=== PATIENT | female | born 1950 | race Caucasian/White ===

== ENCOUNTER 2017-09-02 18:04 | Inpatient (IN) | payer OTHER ==
[2017-09-02 18:05] VITALS: BMI 27.1
--- NOTE | 2017-09-02 19:12 | ED PDOC ---
HPI: Abdomen Time Seen by Provider: 09/02/17 19:04 Chief Complaint (Nursing): Abdominal Pain Chief Complaint (Provider): abd pain History Per: Patient Additional Complaint(s): 67-year-old female with history of diabetes and high blood pressure presents with diffuse lower abdominal pain 2 weeks associated with nausea and straining during bowel movements. Patient denies dysuria, vaginal bleeding or vaginal discharge. She has had decreased appetite and vomited once last week but has not vomited since then. Patient's last bowel movement was yesterday and she states she was straining when she went. She denies any diarrhea, no fever or chills. PMD: [place] Past Medical History Reviewed: Historical Data, Nursing Documentation, Vital Signs Vital Signs: Last Vital Signs Temp 99.0 F 09/02/17 18:17 Pulse 101 H 09/02/17 18:17 Resp 16 09/02/17 18:17 BP 165/80 H 09/02/17 18:17 Pulse Ox 97 09/02/17 19:14 - Medical History PMH: Diabetes, GERD, HTN, Hyperlipidemia - Surgical History Other surgeries: tubal ligation - Family History Family History: States: No Known Family Hx - Living Arrangements Living Arrangements: With Family - Social History Current smoker - smoking cessation education provided: No Alcohol: None Drugs: Denies - Home Medications Home Medications: Ambulatory Orders Medication Instructions Recorded Dicyclomine [Dicyclomine HCl] 10 mg PO 06/11/14 Fenofibrate,Micronized 134 mg PO 06/11/14 [Fenofibrate] Glipizide 10 mg PO DAILY 06/11/14 Pantoprazole Sodium [Protonix] 40 mg PO DAILY 06/11/14 Acetaminophen with Codeine 1 tab PO Q6 PRN #20 tab 11/18/14 [Tylenol with Codeine No. 3 300 mg-30 mg] Ciprofloxacin/Ciprofloxa HCl 500 mg PO BID #14 tab 11/18/14 [Ciprofloxacin] Cyclobenzaprine HCl [Flexeril] 10 mg PO Q8 #20 tab 11/18/14 - Allergies Allergies/Adverse Reactions: Allergies Allergy/AdvReac Type Severity Reaction Status Date / Time No Known Allergies Allergy Verified 09/02/17 18:17 Review of Systems ROS Statement: Except As Marked, All Systems Reviewed And Found Negative Constitutional: Negative for: Fever, Chills Cardiovascular: Negative for: Chest Pain Respiratory: Negative for: Cough Gastrointestinal: Positive for: Nausea, Vomiting (x 1 last week, none since), Abdominal Pain. Negative for: Diarrhea, Constipation, Melena, Hematochezia, Hematemesis, Rectal Pain Genitourinary Female: Negative for: Dysuria, Frequency, Incontinence, Hematuria , Vaginal Discharge, Vaginal Bleeding Physical Exam - Reviewed Nursing Documentation Reviewed: Yes Vital Signs Reviewed: Yes - Physical Exam Appears: Positive for: Well, Non-toxic, No Acute Distress Skin: Positive for: Normal Color. Negative for: Rash Eye Exam: Positive for: Normal appearance Cardiovascular/Chest: Positive for: Regular Rate, Rhythm Respiratory: Positive for: Normal Breath Sounds Gastrointestinal/Abdominal: Positive for: Tenderness (LLQ, RLQ), Distended. Negative for: Guarding, Rebound Back: Negative for: L CVA Tenderness, R CVA Tenderness Extremity: Positive for: Normal ROM Neurologic/Psych: Positive for: Alert, Oriented - ECG O2 Sat by Pulse Oximetry: 97 Pulse Ox Interpretation: Normal Medical Decision Making Medical Decision Makin67 y/o with abd pain Plan: Urine dip CBC CMP Lipase IVF IV zofran IV toradol CT abd and pelvis with IV contrast Disposition - Clinical Impression Clinical Impression: Abdominal pain - Patient ED Disposition Is Patient to be Admitted: Transfer of Care - Disposition Disposition: Transfer of Care Disposition Time: 20:00 Condition: FAIR Forms: [employer] (Amharic) Patient Signed Over To: Caren Pedro Handoff Comments: Signed out pending diagnostic testing results and final disposition
[2017-09-02] MEDS ORDERED: Sodium Chloride 0.9% 1,000 ML IV STA (19:31)
[2017-09-02] MEDS ORDERED: Iohexol 300 100 ML IJ ONE (20:10)
[2017-09-02] MEDS ORDERED: Sodium Chloride 0.9% 100 ML ONE (20:10)
[2017-09-02 20:15] LABS: BASO % 0.3 % (0.0-2.0); EOS # 0.2 K/uL (0.0-0.7); EOS % 1.6 % (0.0-4.0); HEMOGLOBIN 12.8 g/dL (12.0-16.0); LYMPH # 3.1 K/uL (1.0-4.3); MEAN CELL VOLUME 90.1 fl (81.0-99.0); MEAN CORPUSCULAR HEMOGLOBIN 31.2 pg (27.0-31.0); MEAN CORPUSCULAR HGB CONC 34.6 g/dL (33.0-37.0); MEAN PLATELET VOLUME 8.5 fl (7.2-11.7); MONO # 0.7 K/uL (0.0-0.8); NEUT # 6.4 K/uL (1.8-7.0); NEUT % 61.1 % (50.0-75.0); RBC 4.12 Mil/uL (3.80-5.20); RED CELL DISTRIBUTION WIDTH 13.2 % (11.5-14.5); WHITE BLOOD COUNT 10.5 K/uL (4.8-10.8)
[2017-09-02 20:21] LABS: ALB/GLOB RATIO 1.2 (1.0-2.1); ALBUMIN 4.1 g/dL (3.5-5.0); ALT/SGPT 32 U/L (9-52); AST/SGOT 26 U/L (14-36); BLOOD UREA NITROGEN 9 mg/dl (7-17); CALCIUM 9.3 mg/dL (8.4-10.2); GFR AFRICAN-AMERICAN > 60; GFR NON-AFRICAN AMERICAN > 60; LIPASE 53 U/L (23-300)
--- NOTE | 2017-09-02 23:41 | ED PDOC ---
- Laboratory Results Result Diagrams: 09/02/17 20:05 09/02/17 20:05 - ECG O2 Sat by Pulse Oximetry: 97 - Progress ED Course And Treament: ct abd/pelvis IMPRESSION: Finding suggestion of early or partial small bowel obstruction as described above. Probable transition point within the right lower abdomen. Associated small bowel feces suggests a more prolonged delayed gastric transit. Thank you for allowing us to participate in the care of your patient. Dictated and Authenticated by: En Nichols DO 09/02/2017 9:42 PM Eastern Time d/w Franco Case. Would like Dr. Duran for surgery consult; Would like dr. Alvarado for GI consult d/w residential support specialist. Call placed to Dr. Alvarado Disposition - Clinical Impression Clinical Impression: Abdominal pain - POA Present On Arrival: None - Disposition Disposition: Admitted as In-Patient Disposition Time: 23:57 Condition: FAIR Forms: [facility] [facility] (Rwandan)
[2017-09-03 00:03] LABS: SQUAMOUS EPITHIAL 1 /hpf (0-5); URINE BACTERIA OCC (<OCC); URINE BILIRUBIN NEGATIVE (NEGATIVE); URINE BLOOD NEGATIVE (NEGATIVE); URINE CLARITY CLEAR (Clear); URINE COLOR STRAW (YELLOW); URINE GLUCOSE (UA) NEG (Normal); URINE LEUKOCYTE ESTERASE TRACE Leu/uL (Negative); URINE PROTEIN NEGATIVE (NEGATIVE); URINE URIC ACID CRYSTALS RARE /hpf (<OCC); URINE UROBILINOGEN 0.2-1.0 mg/dL (0.2-1.0)
--- NOTE | 2017-09-03 00:55 | CP.PCM.CON ---
<Gumaro Saunders - Last Filed: 09/03/17 00:45> History of Present Illness - History of Present Illness History of Present Illness: General Surgery Consult CC: lower abdominal pain HPI: 67F presented to ED with diffuse lower abd pain for 2 weeks associated with nausea, bloating, and flatus. Pain got much worse on 09/02/17 so she came to ED. Pain is sharp and constant. no radiation. Report decreased appetite, 1 episode of emesis of food last week. Last BM was yesterday, small but normal, takes MOM at home, last dose 4 days ago. + Flatus, will have diarrhea with MOM. Denies fever, chills, headache, dizziness, SOB, chest pain, emesis, hematochezia , melena, dysuria, hematuria. PMH: DM, HTN, HLD, GERD, back pain PSH: Tubal ligation, R knee sx FH: Noncontributory Meds: See MAR All: NKDA Review of Systems - Review of Systems All systems: reviewed and no additional remarkable complaints except (as per HPI ) Past Patient History - Past Medical History & Family History Past Medical History?: Yes - Past Social History Alcohol: None Drugs: Denies - CARDIAC Hx Hypertension: Yes - PULMONARY Hx Respiratory Disorders: No - NEUROLOGICAL Hx Neurological Disorder: No - HEENT Hx HEENT Problems: No - RENAL Hx Chronic Kidney Disease: No - ENDOCRINE/METABOLIC Hx Endocrine Disorders: Yes Hx Diabetes Mellitus Type 2: Yes - HEMATOLOGICAL/ONCOLOGICAL Hx Blood Disorders: No - INTEGUMENTARY Hx Dermatological Problems: No - MUSCULOSKELETAL/RHEUMATOLOGICAL Hx Musculoskeletal Disorders: No - GASTROINTESTINAL Hx Gastrointestinal Disorders: No - GENITOURINARY/GYNECOLOGICAL Hx Genitourinary Disorders: No - PSYCHIATRIC Hx Psychophysiologic Disorder: No Hx Emotional Abuse: No Hx Physical Abuse: No Hx Substance Use: No - SURGICAL HISTORY Hx Surgeries: Yes Hx Tubal Ligation: Yes - ANESTHESIA Hx Anesthesia: Yes Hx Anesthesia Reactions: No Hx Malignant Hyperthermia: No Meds Allergies/Adverse Reactions: Allergies Allergy/AdvReac Type Severity Reaction Status Date / Time No Known Allergies Allergy Verified 09/02/17 18:17 - Medications Medications: Current Medications Lactated Ringer's (Lactated Ringer's) 1,000 mls @ 100 mls/hr IV .Q10H [facility] Ondansetron HCl (Zofran Odt) 4 mg PO Q8H PRN PRN Reason: Nausea/Vomiting Physical Exam - Constitutional Appears: Well, Non-toxic, No Acute Distress - Head Exam Head Exam: ATRAUMATIC, NORMOCEPHALIC - Eye Exam Eye Exam: EOMI. absent: Scleral icterus - ENT Exam ENT Exam: Mucous Membranes Moist Additional comments: trachea midline - Neck Exam Neck exam: Positive for: Full Rom. Negative for: Lymphadenopathy - Respiratory Exam Respiratory Exam: NORMAL BREATHING PATTERN. absent: Respiratory Distress - Cardiovascular Exam Cardiovascular Exam: RRR (on exam), +S1, +S2 - GI/Abdominal Exam GI & Abdominal Exam: Hernia (small umbilical hernia, no contents, palpable defect), Soft, Tenderness (in suprapubic areal). absent: Distended, Firm, Guarding, Rebound, Rigid - Rectal Exam Rectal Exam: Deferred - Extremities Exam Extremities exam: Positive for: normal capillary refill. Negative for: calf tenderness, pedal edema - Back Exam Back exam: tenderness (over lower back). absent: CVA tenderness (L), CVA tenderness (R) - Neurological Exam Neurological exam: Alert, Oriented x3 - Psychiatric Exam Psychiatric exam: Normal Affect, Normal Mood - Skin Skin Exam: Dry, Warm Results - Vital Signs Recent Vital Signs: Last Vital Signs Temp 99.0 F 09/02/17 18:17 Pulse 101 H 09/02/17 18:17 Resp 16 09/02/17 18:17 BP 165/80 H 09/02/17 18:17 Pulse Ox 97 09/03/17 00:33 - Labs Result Diagrams: 09/02/17 20:05 09/02/17 20:05 Labs: Laboratory Results - last 24 hr 09/02/17 09/02/17 09/02/17 20:05 20:05 23:50 WBC 10.5 RBC 4.12 Hgb 12.8 Hct 37.1 MCV 90.1 MCH 31.2 H MCHC 34.6 RDW 13.2 Plt Count 267 MPV 8.5 Neut % (Auto) 61.1 Lymph % (Auto) 30.0 [place] % (Auto) 7.0 Eos % (Auto) 1.6 Baso % (Auto) 0.3 Neut # (Auto) 6.4 Lymph # (Auto) 3.1 [place] # (Auto) 0.7 Eos # (Auto) 0.2 Baso # (Auto) 0.0 Sodium 141 Potassium 3.6 Chloride 101 Carbon Dioxide 25 Anion Gap 19 BUN 9 Creatinine 0.5 L Est GFR ( Amer) > 60 Est GFR (Non-Af Amer) > 60 Random Glucose 61 L Calcium 9.3 Total Bilirubin 0.6 AST 26 ALT 32 Alkaline Phosphatase 107 Total Protein 7.3 Albumin 4.1 Globulin 3.3 Albumin/Globulin Ratio 1.2 Lipase 53 Urine Color Straw Urine Clarity Clear Urine pH 6.0 Ur Specific [place] < 1.005 Urine Protein Negative Urine Glucose (UA) Neg Urine Ketones Negative Urine Blood Negative Urine Nitrate Positive H Urine Bilirubin Negative Urine Urobilinogen 0.2-1.0 Ur Leukocyte Esterase Trace Urine RBC (Auto) 1 Urine Microscopic WBC 3 Ur Squamous Epith Cells 1 Uric Acid Crystals Rare Urine Bacteria Occ H - Imaging and Cardiology CT scan - abdomen Status: Image reviewed by me, Report reviewed by me Assessment & Plan - Assessment and Plan (Free Text) Assessment: 67F with partial SBO, constipation Plan: NPO IVF Zofran Monitor for bowel movements Serial Abd exams AM Labs D/W Dr. Roger Saunders PGY4 <Rg Duran - Last Filed: 09/03/17 11:01> History of Present Illness - History of Present Illness History of Present Illness: Patient was seen and examined at the bedside. Agree with resident's note above. States that feels much better today and passing flatus, no bowel movements yet. Meds - Medications Medications: Current Medications Lactated Ringer's (Lactated Ringer's) 1,000 mls @ 100 mls/hr IV .Q10H [facility] Last Admin: 09/03/17 01:23 Dose: 100 mls/hr Ciprofloxacin (Cipro 400mg/200ml Dsw) 400 mg in 200 mls @ 200 mls/hr IVPB Q12 [facility] PRN Reason: Protocol Ketorolac Tromethamine (Toradol) 30 mg IVP Q6 PRN PRN Reason: Pain, moderate (4-7) Losartan Potassium (Cozaar) 25 mg PO DAILY [facility] Last Admin: 09/03/17 08:58 Dose: Not Given Morphine Sulfate (Morphine) 2 mg IVP Q4 PRN PRN Reason: Pain, severe (8-10) Ondansetron HCl (Zofran Odt) 4 mg PO Q8H PRN PRN Reason: Nausea/Vomiting Physical Exam - GI/Abdominal Exam Additional comments: soft, very mildly tender in the lower abdomen, ND, BS+, no rebound, no guarding , well healed lower abdominal incision from prior surgery Results - Vital Signs Recent Vital Signs: Last Vital Signs Temp 98.3 F 09/03/17 09:00 Pulse 72 09/03/17 09:00 Resp 20 09/03/17 09:00 BP 130/60 09/03/17 09:00 Pulse Ox 94 L 09/03/17 09:00 - Labs Result Diagrams: 09/03/17 08:30 09/03/17 08:30 Labs: Laboratory Results - last 24 hr 09/02/17 09/02/17 09/02/17 20:05 20:05 23:50 WBC 10.5 RBC 4.12 Hgb 12.8 Hct 37.1 MCV 90.1 MCH 31.2 H MCHC 34.6 RDW 13.2 Plt Count 267 MPV 8.5 Neut % (Auto) 61.1 Lymph % (Auto) 30.0 [place] % (Auto) 7.0 Eos % (Auto) 1.6 Baso % (Auto) 0.3 Neut # (Auto) 6.4 Lymph # (Auto) 3.1 [place] # (Auto) 0.7 Eos # (Auto) 0.2 Baso # (Auto) 0.0 Sodium 141 Potassium 3.6 Chloride 101 Carbon Dioxide 25 Anion Gap 19 BUN 9 Creatinine 0.5 L Est GFR ( Amer) > 60 Est GFR (Non-Af Amer) > 60 POC Glucose (mg/dL) Random Glucose 61 L Calcium 9.3 Total Bilirubin 0.6 AST 26 ALT 32 Alkaline Phosphatase 107 Total Protein 7.3 Albumin 4.1 Globulin 3.3 Albumin/Globulin Ratio 1.2 Lipase 53 Urine Color Straw Urine Clarity Clear Urine pH 6.0 Ur Specific [place] < 1.005 Urine Protein Negative Urine Glucose (UA) Neg Urine Ketones Negative Urine Blood Negative Urine Nitrate Positive H Urine Bilirubin Negative Urine Urobilinogen 0.2-1.0 Ur Leukocyte Esterase Trace Urine RBC (Auto) 1 Urine Microscopic WBC 3 Ur Squamous Epith Cells 1 Uric Acid Crystals Rare Urine Bacteria Occ H 09/03/17 09/03/17 09/03/17 06:50 08:30 08:30 WBC 6.4 RBC 3.99 Hgb 12.4 Hct 36.5 MCV 91.4 MCH 31.0 MCHC 33.9 RDW 13.2 Plt Count 231 MPV 8.3 Neut % (Auto) 61.3 Lymph % (Auto) 28.9 [place] % (Auto) 8.1 Eos % (Auto) 1.6 Baso % (Auto) 0.1 Neut # (Auto) 3.9 Lymph # (Auto) 1.8 [place] # (Auto) 0.5 Eos # (Auto) 0.1 Baso # (Auto) 0.0 Sodium 142 Potassium 3.8 Chloride 105 Carbon Dioxide 25 Anion Gap 16 BUN 7 Creatinine 0.5 L Est GFR ( Amer) > 60 Est GFR (Non-Af Amer) > 60 POC Glucose (mg/dL) 115 H Random Glucose 109 H Calcium 8.7 Total Bilirubin 0.6 AST 23 ALT 37 Alkaline Phosphatase 92 Total Protein 6.5 Albumin 3.5 Globulin 3.0 Albumin/Globulin Ratio 1.2 Lipase Urine Color Urine Clarity Urine pH Ur Specific [place] Urine Protein Urine Glucose (UA) Urine Ketones Urine Blood Urine Nitrate Urine Bilirubin Urine Urobilinogen Ur Leukocyte Esterase Urine RBC (Auto) Urine Microscopic WBC Ur Squamous Epith Cells Uric Acid Crystals Urine Bacteria Assessment & Plan - Assessment and Plan (Free Text) Plan: - Start clear liquid diet - Pain control - IV fluids - Repeat labs in am - Will follow
[2017-09-03] MEDS: Lactated Ringer's 1,000 ML IV SCH ×3 (01:23→14:43)
[2017-09-03] MEDS ORDERED: Morphine 4 MG/ML VIAL IVP PRN (06:36)
[2017-09-03 08:52] LABS: BASO % 0.1 % (0.0-2.0); EOS # 0.1 K/uL (0.0-0.7); EOS % 1.6 % (0.0-4.0); HEMOGLOBIN 12.4 g/dL (12.0-16.0); LYMPH # 1.8 K/uL (1.0-4.3); LYMPH % 28.9 % (20.0-40.0); MEAN CELL VOLUME 91.4 fl (81.0-99.0); MEAN CORPUSCULAR HGB CONC 33.9 g/dL (33.0-37.0); MEAN PLATELET VOLUME 8.3 fl (7.2-11.7); MONO # 0.5 K/uL (0.0-0.8); MONO % 8.1 % (0.0-10.0); NEUT # 3.9 K/uL (1.8-7.0); NEUT % 61.3 % (50.0-75.0); RBC 3.99 Mil/uL (3.80-5.20); RED CELL DISTRIBUTION WIDTH 13.2 % (11.5-14.5); WHITE BLOOD COUNT 6.4 K/uL (4.8-10.8)
--- NOTE | 2017-09-03 08:57 | CP.PCM.HP ---
History of Present Illness - History of Present Illness History of Present Illness: pt doing well. admitted for partial sbo. no f/c, n/v/d, abd pain at present. 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 surgical consult appriciated. Present on Admission - Present on Admission Any Indicators Present on Admission: Yes History of Uncontrolled Diabetes: Yes Review of Systems - Gastrointestinal Gastrointestinal: As Per HPI, Abdominal Pain, Cramping, Diarrhea Past Patient History - Past Medical History & Family History Past Medical History?: Yes - Past Social History Smoking Status: Never Smoked - CARDIAC Hx Hypertension: Yes - PULMONARY Hx Respiratory Disorders: No - NEUROLOGICAL Hx Neurological Disorder: No - HEENT Hx HEENT Problems: No - RENAL Hx Chronic Kidney Disease: No - ENDOCRINE/METABOLIC Hx Endocrine Disorders: Yes Hx Diabetes Mellitus Type 2: Yes - HEMATOLOGICAL/ONCOLOGICAL Hx Blood Disorders: No - INTEGUMENTARY Hx Dermatological Problems: No - MUSCULOSKELETAL/RHEUMATOLOGICAL Hx Musculoskeletal Disorders: No Hx Falls: No - GASTROINTESTINAL Hx Gastrointestinal Disorders: No Hx Gastroesophageal Reflux: Yes - GENITOURINARY/GYNECOLOGICAL Hx Genitourinary Disorders: No - PSYCHIATRIC Hx Psychophysiologic Disorder: No Hx Emotional Abuse: No Hx Physical Abuse: No Hx Substance Use: No - SURGICAL HISTORY Hx Surgeries: Yes Hx Tubal Ligation: Yes Other/Comment: Right knee surgery - ANESTHESIA Hx Anesthesia: Yes Hx Anesthesia Reactions: No Hx Malignant Hyperthermia: No Has any member of the family had a problem w/ anesthesia?: No Meds Allergies/Adverse Reactions: Allergies Allergy/AdvReac Type Severity Reaction Status Date / Time No Known Allergies Allergy Verified 09/02/17 18:17 Physical Exam - Constitutional Appears: Well, Non-toxic, No Acute Distress - Head Exam Head Exam: ATRAUMATIC, NORMAL INSPECTION, NORMOCEPHALIC - Eye Exam Eye Exam: EOMI, Normal appearance, PERRL Pupil Exam: NORMAL ACCOMODATION, PERRL - ENT Exam ENT Exam: Mucous Membranes Moist, Normal Exam - Neck Exam Neck exam: Positive for: Normal Inspection - Respiratory Exam Respiratory Exam: Clear to Auscultation Bilateral, NORMAL BREATHING PATTERN - Cardiovascular Exam Cardiovascular Exam: REGULAR RHYTHM, RRR, +S1, +S2 - GI/Abdominal Exam GI & Abdominal Exam: Normal Bowel Sounds, Soft. absent: Tenderness - Extremities Exam Extremities exam: Positive for: full ROM, normal capillary refill, normal inspection, pedal pulses present - Back Exam Back exam: NORMAL INSPECTION - Neurological Exam Neurological exam: Alert, CN II-XII Intact, Normal Gait, Oriented x3, Reflexes Normal - Psychiatric Exam Psychiatric exam: Normal Affect, Normal Mood - Skin Skin Exam: Dry, Intact, Normal Color, Warm Results - Vital Signs Recent Vital Signs: Last Vital Signs Temp 98.0 F 09/03/17 02:00 Pulse 82 09/03/17 02:00 Resp 19 09/03/17 02:00 BP 152/75 H 09/03/17 02:00 Pulse Ox 97 09/03/17 02:00 - Labs Result Diagrams: 09/03/17 08:30 09/02/17 20:05 Labs: Laboratory Results - last 24 hr 09/02/17 09/02/17 09/02/17 20:05 20:05 23:50 WBC 10.5 RBC 4.12 Hgb 12.8 Hct 37.1 MCV 90.1 MCH 31.2 H MCHC 34.6 RDW 13.2 Plt Count 267 MPV 8.5 Neut % (Auto) 61.1 Lymph % (Auto) 30.0 [place] % (Auto) 7.0 Eos % (Auto) 1.6 Baso % (Auto) 0.3 Neut # (Auto) 6.4 Lymph # (Auto) 3.1 [place] # (Auto) 0.7 Eos # (Auto) 0.2 Baso # (Auto) 0.0 Sodium 141 Potassium 3.6 Chloride 101 Carbon Dioxide 25 Anion Gap 19 BUN 9 Creatinine 0.5 L Est GFR ( Amer) > 60 Est GFR (Non-Af Amer) > 60 POC Glucose (mg/dL) Random Glucose 61 L Calcium 9.3 Total Bilirubin 0.6 AST 26 ALT 32 Alkaline Phosphatase 107 Total Protein 7.3 Albumin 4.1 Globulin 3.3 Albumin/Globulin Ratio 1.2 Lipase 53 Urine Color Straw Urine Clarity Clear Urine pH 6.0 Ur Specific [place] < 1.005 Urine Protein Negative Urine Glucose (UA) Neg Urine Ketones Negative Urine Blood Negative Urine Nitrate Positive H Urine Bilirubin Negative Urine Urobilinogen 0.2-1.0 Ur Leukocyte Esterase Trace Urine RBC (Auto) 1 Urine Microscopic WBC 3 Ur Squamous Epith Cells 1 Uric Acid Crystals Rare Urine Bacteria Occ H 09/03/17 09/03/17 06:50 08:30 WBC 6.4 RBC 3.99 Hgb 12.4 Hct 36.5 MCV 91.4 MCH 31.0 MCHC 33.9 RDW 13.2 Plt Count 231 MPV 8.3 Neut % (Auto) 61.3 Lymph % (Auto) 28.9 [place] % (Auto) 8.1 Eos % (Auto) 1.6 Baso % (Auto) 0.1 Neut # (Auto) 3.9 Lymph # (Auto) 1.8 [place] # (Auto) 0.5 Eos # (Auto) 0.1 Baso # (Auto) 0.0 Sodium Potassium Chloride Carbon Dioxide Anion Gap BUN Creatinine Est GFR ( Amer) Est GFR (Non-Af Amer) POC Glucose (mg/dL) 115 H Random Glucose Calcium Total Bilirubin AST ALT Alkaline Phosphatase Total Protein Albumin Globulin Albumin/Globulin Ratio Lipase Urine Color Urine Clarity Urine pH Ur Specific [place] Urine Protein Urine Glucose (UA) Urine Ketones Urine Blood Urine Nitrate Urine Bilirubin Urine Urobilinogen Ur Leukocyte Esterase Urine RBC (Auto) Urine Microscopic WBC Ur Squamous Epith Cells Uric Acid Crystals Urine Bacteria Assessment & Plan (1) SBO (small bowel obstruction) Assessment and Plan: npo surgery/gi ivf ct noted adv diet as per surgery/gi pain and nausea control Status: Acute (2) Diabetes type 2, uncontrolled Assessment and Plan: fsbg hold meds for now resume po when cleared and will resume meds at that time Status: Acute (3) DVT prophylaxis Assessment and Plan: scd and ae hose ambulation Status: Acute Decision To Admit - Pt Status Changed To: Hospital Disposition Of: Inpatient - Admit Certification Admit to Inpatient:: After my assessment, the patient will require hospitalization for at least two midnights. This is because of the severity of symptoms shown, intensity of services needed, and/or the medical risk in this patient being treated as an outpatient. - . Bed Request Type: Med/Surg Admitting Physician: Deirdre Del Cid
[2017-09-03 09:19] LABS: ALB/GLOB RATIO 1.2 (1.0-2.1); ALBUMIN 3.5 g/dL (3.5-5.0); ALT/SGPT 37 U/L (9-52); AST/SGOT 23 U/L (14-36); BLOOD UREA NITROGEN 7 mg/dl (7-17); CALCIUM 8.7 mg/dL (8.4-10.2); GFR AFRICAN-AMERICAN > 60; GFR NON-AFRICAN AMERICAN > 60
--- NOTE | 2017-09-03 09:37 | CT ---
PROCEDURE: CT Abdomen and Pelvis with contrast HISTORY: lower abd pain, nausea, straining COMPARISON: None available. TECHNIQUE: Following the intravenous administration of iodinated contrast material, a CT examination of the abdomen and pelvis performed from the domes of the diaphragms to the symphysis pubis with reformatted datasets provided not only axial but also sagittal and coronal planes. Oral contrast was not administered as per referring physician request. Contrast dose: Omnipaque 300, 95 cc. Radiation dose: Total exam DLP = 731.96 mGy-cm. This CT exam was performed using one or more of the following dose reduction techniques: Automated exposure control, adjustment of the mA and/or kV according to patient size, and/or use of iterative reconstruction technique. FINDINGS: LOWER THORAX: Unremarkable. LIVER: Unremarkable. No gross lesion or ductal dilatation. GALLBLADDER AND BILE DUCTS: Unremarkable. PANCREAS: Unremarkable. No gross lesion or ductal dilatation. SPLEEN: Unremarkable. ADRENALS: Unremarkable. No mass. KIDNEYS AND URETERS: Unremarkable. No hydronephrosis. No solid mass. VASCULATURE: Unremarkable. No aortic aneurysm. BOWEL: Stomach is collapsed. However, small bowel appears dilated relatively diffusely with exception of slight decrease in caliber at the ileum. Fecalized material is seen in the small bowel segment in image 81 series 3 with a caliber reducing somewhat distal to this level. Consider possible small-bowel obstruction developing. No free intraperitoneal gas or mesenteric reaction is identified. Chain fecal material is seen at the right and transverse colon segments greater than at the left hemicolon. Left colonic diverticular changes are concentrated at the sigmoid segment without diverticulitis. APPENDIX: Normal appendix. PERITONEUM: Unremarkable. No free fluid. No free air. Tiny umbilical hernia is identified containing only fat. LYMPH NODES: Unremarkable. No enlarged lymph nodes. BLADDER: Unremarkable. REPRODUCTIVE: The pattern surgical clips in the bilateral inferior pelvis may indicate prior tubal ligation. Clinically correlate. BONES: No acute fracture. OTHER FINDINGS: None. IMPRESSION: Partial or intermittent mid to distal small bowel obstruction suspected. No free air or ascites. Post operative changes in pelvis may indicate prior bilateral tubal ligation. Left colonic diverticulosis without diverticulitits. Concordant preliminary report from [facility], 09/03/2107.
[2017-09-03] MEDS: Ciprofloxacin 400mg/200ml D5W 400 MG/200 ML BAG IVPB SCH ×2 (11:17→21:30)
[2017-09-03] MEDS ORDERED: Ciprofloxacin 200mg/100ml D5W 100 ML IVPB SCH (11:30)
--- NOTE | 2017-09-03 14:24 | CP.PCM.CON ---
History of Present Illness - History of Present Illness History of Present Illness: PGY5 GI Fellow Consult Note Patient is a 67yo female with PMHx significant for DM, HTN, dyslipidemia, GERD who presented with abdominal pain, nausea and bloating. States that 2 weeks ago she suddenly developed cramping lower abdominal/pelvic discomfort. Pain progressively worsened in severity and as she was becomming nauseated, she came to the ED for evaluation. She admits to constipation for much of her life but has been passing 1 stool per day and using milk of magnesia when necessary. Admits to passing flatus without issue. CT A/P in the ED did reveal diverticulosis and partial small bowel obstruction at the level of the ileum. Patient has not had prior history of bowel obstructions. Denies vomiting, fever , chills, weight loss, rectal bleeding. 12 system ROS performed and negative except where stated. PMHx: See HPI PSHx: tubal ligation, right knee FHx: Discussed with patient and she denies any significant family history Social Denies tobacco, EtOH or illicit drug use Endo: EGD/Colonoscopy in 2014 - H pylori gastritis (unknown if treated), diverticulosis, internal hemorrhoids Past Patient History - Past Medical History & Family History Past Medical History?: Yes - Past Social History Smoking Status: Never Smoked - CARDIAC Hx Hypertension: Yes - PULMONARY Hx Respiratory Disorders: No - NEUROLOGICAL Hx Neurological Disorder: No - HEENT Hx HEENT Problems: No - RENAL Hx Chronic Kidney Disease: No - ENDOCRINE/METABOLIC Hx Endocrine Disorders: Yes Hx Diabetes Mellitus Type 2: Yes - HEMATOLOGICAL/ONCOLOGICAL Hx Blood Disorders: No - INTEGUMENTARY Hx Dermatological Problems: No - MUSCULOSKELETAL/RHEUMATOLOGICAL Hx Musculoskeletal Disorders: No Hx Falls: No - GASTROINTESTINAL Hx Gastrointestinal Disorders: No Hx Gastroesophageal Reflux: Yes - GENITOURINARY/GYNECOLOGICAL Hx Genitourinary Disorders: No - PSYCHIATRIC Hx Psychophysiologic Disorder: No Hx Emotional Abuse: No Hx Physical Abuse: No Hx Substance Use: No - SURGICAL HISTORY Hx Surgeries: Yes Hx Tubal Ligation: Yes Other/Comment: Right knee surgery - ANESTHESIA Hx Anesthesia: Yes Hx Anesthesia Reactions: No Hx Malignant Hyperthermia: No Has any member of the family had a problem w/ anesthesia?: No Meds Allergies/Adverse Reactions: Allergies Allergy/AdvReac Type Severity Reaction Status Date / Time No Known Allergies Allergy Verified 09/02/17 18:17 - Medications Medications: Current Medications Lactated Ringer's (Lactated Ringer's) 1,000 mls @ 100 mls/hr IV .Q10H [facility] Last Admin: 09/03/17 11:22 Dose: Not Given Ciprofloxacin (Cipro 400mg/200ml Dsw) 400 mg in 200 mls @ 200 mls/hr IVPB Q12 NORIS PRN Reason: Protocol Last Admin: 09/03/17 11:17 Dose: 200 mls/hr Ketorolac Tromethamine (Toradol) 30 mg IVP Q6 PRN PRN Reason: Pain, moderate (4-7) Losartan Potassium (Cozaar) 25 mg PO DAILY [facility] Last Admin: 09/03/17 11:18 Dose: 25 mg Morphine Sulfate (Morphine) 2 mg IVP Q4 PRN PRN Reason: Pain, severe (8-10) Ondansetron HCl (Zofran Odt) 4 mg PO Q8H PRN PRN Reason: Nausea/Vomiting Physical Exam - Constitutional Appears: Non-toxic, No Acute Distress - Eye Exam Eye Exam: EOMI, PERRL - ENT Exam ENT Exam: Mucous Membranes Moist - Respiratory Exam Respiratory Exam: Clear to Auscultation Bilateral. absent: Rales, Rhonchi, Wheezes - Cardiovascular Exam Cardiovascular Exam: RRR, +S1, +S2 - GI/Abdominal Exam GI & Abdominal Exam: Normal Bowel Sounds, Soft, Tenderness (LLQ, mild). absent : Distended, Firm, Guarding, Organomegaly, Rigid - Extremities Exam Extremities exam: Positive for: normal inspection. Negative for: pedal edema - Neurological Exam Neurological exam: Alert, Oriented x3 - Psychiatric Exam Psychiatric exam: Normal Affect, Normal Mood - Skin Skin Exam: Dry, Warm Results - Vital Signs Recent Vital Signs: Last Vital Signs Temp 98.3 F 09/03/17 09:00 Pulse 72 09/03/17 11:18 Resp 20 09/03/17 09:00 BP 130/60 09/03/17 11:18 Pulse Ox 94 L 09/03/17 09:00 - Labs Result Diagrams: 09/03/17 08:30 09/03/17 08:30 Labs: Laboratory Results - last 24 hr 09/02/17 09/02/17 09/02/17 20:05 20:05 23:50 WBC 10.5 RBC 4.12 Hgb 12.8 Hct 37.1 MCV 90.1 MCH 31.2 H MCHC 34.6 RDW 13.2 Plt Count 267 MPV 8.5 Neut % (Auto) 61.1 Lymph % (Auto) 30.0 [place] % (Auto) 7.0 Eos % (Auto) 1.6 Baso % (Auto) 0.3 Neut # (Auto) 6.4 Lymph # (Auto) 3.1 [place] # (Auto) 0.7 Eos # (Auto) 0.2 Baso # (Auto) 0.0 Sodium 141 Potassium 3.6 Chloride 101 Carbon Dioxide 25 Anion Gap 19 BUN 9 Creatinine 0.5 L Est GFR ( Amer) > 60 Est GFR (Non-Af Amer) > 60 POC Glucose (mg/dL) Random Glucose 61 L Calcium 9.3 Total Bilirubin 0.6 AST 26 ALT 32 Alkaline Phosphatase 107 Total Protein 7.3 Albumin 4.1 Globulin 3.3 Albumin/Globulin Ratio 1.2 Lipase 53 Urine Color Straw Urine Clarity Clear Urine pH 6.0 Ur Specific [place] < 1.005 Urine Protein Negative Urine Glucose (UA) Neg Urine Ketones Negative Urine Blood Negative Urine Nitrate Positive H Urine Bilirubin Negative Urine Urobilinogen 0.2-1.0 Ur Leukocyte Esterase Trace Urine RBC (Auto) 1 Urine Microscopic WBC 3 Ur Squamous Epith Cells 1 Uric Acid Crystals Rare Urine Bacteria Occ H 09/03/17 09/03/17 09/03/17 06:50 08:30 08:30 WBC 6.4 RBC 3.99 Hgb 12.4 Hct 36.5 MCV 91.4 MCH 31.0 MCHC 33.9 RDW 13.2 Plt Count 231 MPV 8.3 Neut % (Auto) 61.3 Lymph % (Auto) 28.9 [place] % (Auto) 8.1 Eos % (Auto) 1.6 Baso % (Auto) 0.1 Neut # (Auto) 3.9 Lymph # (Auto) 1.8 [place] # (Auto) 0.5 Eos # (Auto) 0.1 Baso # (Auto) 0.0 Sodium 142 Potassium 3.8 Chloride 105 Carbon Dioxide 25 Anion Gap 16 BUN 7 Creatinine 0.5 L Est GFR ( Amer) > 60 Est GFR (Non-Af Amer) > 60 POC Glucose (mg/dL) 115 H Random Glucose 109 H Calcium 8.7 Total Bilirubin 0.6 AST 23 ALT 37 Alkaline Phosphatase 92 Total Protein 6.5 Albumin 3.5 Globulin 3.0 Albumin/Globulin Ratio 1.2 Lipase Urine Color Urine Clarity Urine pH Ur Specific [place] Urine Protein Urine Glucose (UA) Urine Ketones Urine Blood Urine Nitrate Urine Bilirubin Urine Urobilinogen Ur Leukocyte Esterase Urine RBC (Auto) Urine Microscopic WBC Ur Squamous Epith Cells Uric Acid Crystals Urine Bacteria 09/03/17 11:11 WBC RBC Hgb Hct MCV MCH MCHC RDW Plt Count MPV Neut % (Auto) Lymph % (Auto) [place] % (Auto) Eos % (Auto) Baso % (Auto) Neut # (Auto) Lymph # (Auto) [place] # (Auto) Eos # (Auto) Baso # (Auto) Sodium Potassium Chloride Carbon Dioxide Anion Gap BUN Creatinine Est GFR ( Amer) Est GFR (Non-Af Amer) POC Glucose (mg/dL) 93 Random Glucose Calcium Total Bilirubin AST ALT Alkaline Phosphatase Total Protein Albumin Globulin Albumin/Globulin Ratio Lipase Urine Color Urine Clarity Urine pH Ur Specific [place] Urine Protein Urine Glucose (UA) Urine Ketones Urine Blood Urine Nitrate Urine Bilirubin Urine Urobilinogen Ur Leukocyte Esterase Urine RBC (Auto) Urine Microscopic WBC Ur Squamous Epith Cells Uric Acid Crystals Urine Bacteria Assessment & Plan - Assessment and Plan (Free Text) Assessment: Patient is a 67yo female with PMHx significant for DM, HTN, dyslipidemia, GERD who presented with abdominal pain, nausea and bloating -Partial small bowel obstruction -Diverticulosis -Chronic idiopathic constipation Plan: -Supportive care -Appreciate surgical consultation - defer management to their service -Recommend bowel regimen with Miralax 17g PO QD to BID titrated to 1BM/day once tolerating oral intake -Augment fiber/water intake - Date & Time Date: 09/03/17 Time: 12:45
--- NOTE | 2017-09-04 07:52 | CP.PCM.DIS ---
Provider - Provider Date of Admission: 09/02/17 23:57 Attending physician: Deirdre Del Cid MD Time Spent in preparation of Discharge (in minutes): 15 Diagnosis - Discharge Diagnosis (1) SBO (small bowel obstruction) Status: Acute (2) Diabetes type 2, uncontrolled Status: Acute (3) DVT prophylaxis Status: Acute Hospital Course - Lab Results Lab Results: Most Recent Lab Values WBC 6.4 K/uL (4.8-10.8) 09/03/17 08:30 RBC 3.99 Mil/uL (3.80-5.20) 09/03/17 08:30 Hgb 12.4 g/dL (12.0-16.0) 09/03/17 08:30 Hct 36.5 % (34.0-47.0) 09/03/17 08:30 MCV 91.4 fl (81.0-99.0) 09/03/17 08:30 MCH 31.0 pg (27.0-31.0) 09/03/17 08:30 MCHC 33.9 g/dL (33.0-37.0) 09/03/17 08:30 RDW 13.2 % (11.5-14.5) 09/03/17 08:30 Plt Count 231 K/uL (130-400) 09/03/17 08:30 MPV 8.3 fl (7.2-11.7) 09/03/17 08:30 Neut % (Auto) 61.3 % (50.0-75.0) 09/03/17 08:30 Lymph % (Auto) 28.9 % (20.0-40.0) 09/03/17 08:30 [place] % (Auto) 8.1 % (0.0-10.0) 09/03/17 08:30 Eos % (Auto) 1.6 % (0.0-4.0) 09/03/17 08:30 Baso % (Auto) 0.1 % (0.0-2.0) 09/03/17 08:30 Neut # (Auto) 3.9 K/uL (1.8-7.0) 09/03/17 08:30 Lymph # (Auto) 1.8 K/uL (1.0-4.3) 09/03/17 08:30 [place] # (Auto) 0.5 K/uL (0.0-0.8) 09/03/17 08:30 Eos # (Auto) 0.1 K/uL (0.0-0.7) 09/03/17 08:30 Baso # (Auto) 0.0 K/uL (0.0-0.2) 09/03/17 08:30 Sodium 142 mmol/l (132-148) 09/03/17 08:30 Potassium 3.8 MMOL/L (3.6-5.0) 09/03/17 08:30 Chloride 105 mmol/L (98-107) 09/03/17 08:30 Carbon Dioxide 25 mmol/L (22-30) 09/03/17 08:30 Anion Gap 16 (10-20) 09/03/17 08:30 BUN 7 mg/dl (7-17) 09/03/17 08:30 Creatinine 0.5 mg/dl (0.7-1.2) L 09/03/17 08:30 Est GFR ( Amer) > 60 09/03/17 08:30 Est GFR (Non-Af Amer) > 60 09/03/17 08:30 POC Glucose (mg/dL) 175 mg/dL (65-110) H 09/04/17 05:55 Random Glucose 109 mg/dL (65-105) H 09/03/17 08:30 Calcium 8.7 mg/dL (8.4-10.2) 09/03/17 08:30 Total Bilirubin 0.6 mg/dl (0.2-1.3) 09/03/17 08:30 AST 23 U/L (14-36) 09/03/17 08:30 ALT 37 U/L (9-52) 09/03/17 08:30 Alkaline Phosphatase 92 U/L (38-126) 09/03/17 08:30 Total Protein 6.5 G/DL (6.3-8.2) 09/03/17 08:30 Albumin 3.5 g/dL (3.5-5.0) 09/03/17 08:30 Globulin 3.0 gm/dL (2.2-3.9) 09/03/17 08:30 Albumin/Globulin Ratio 1.2 (1.0-2.1) 09/03/17 08:30 Lipase 53 U/L (23-300) 09/02/17 20:05 Urine Color Straw (YELLOW) 09/02/17 23:50 Urine Clarity Clear (Clear) 09/02/17 23:50 Urine pH 6.0 (5.0-8.0) 09/02/17 23:50 Ur Specific [place] < 1.005 (1.003-1.030) 09/02/17 23:50 Urine Protein Negative mg/dL (NEGATIVE) 09/02/17 23:50 Urine Glucose (UA) Neg mg/dL (Normal) 09/02/17 23:50 Urine Ketones Negative mg/dL (NEGATIVE) 09/02/17 23:50 Urine Blood Negative (NEGATIVE) 09/02/17 23:50 Urine Nitrate Positive (NEGATIVE) H 09/02/17 23:50 Urine Bilirubin Negative (NEGATIVE) 09/02/17 23:50 Urine Urobilinogen 0.2-1.0 mg/dL (0.2-1.0) 09/02/17 23:50 Ur Leukocyte Esterase Trace [place]/uL (Negative) 09/02/17 23:50 Urine RBC (Auto) 1 /hpf (0-3) 09/02/17 23:50 Urine Microscopic WBC 3 /hpf (0-5) 09/02/17 23:50 Ur Squamous Epith Cells 1 /hpf (0-5) 09/02/17 23:50 Uric Acid Crystals Rare /hpf (<OCC) 09/02/17 23:50 Urine Bacteria Occ (<OCC) H 09/02/17 23:50 - Hospital Course Hospital Course: cipro for uti surgery, gi po as ivanna, adv as tolerated Discharge Exam - Head Exam Head Exam: ATRAUMATIC, NORMAL INSPECTION, NORMOCEPHALIC - Eye Exam Eye Exam: EOMI, Normal appearance, PERRL Pupil Exam: NORMAL ACCOMODATION, PERRL - Respiratory Exam Respiratory Exam: Clear to PA & Lateral, NORMAL BREATHING PATTERN, UNREMARKABLE - Cardiovascular Exam Cardiovascular Exam: REGULAR RHYTHM, RRR, +S1, +S2 - GI/Abdominal Exam GI & Abdominal Exam: Normal Bowel Sounds, Soft, Unremarkable - Extremities Exam Extremities exam: full ROM, normal capillary refill, normal inspection, pedal pulses present - Neurological Exam Neurological exam: Alert, CN II-XII Intact, Normal Gait, Oriented x3, Reflexes Normal - Psychiatric Exam Psychiatric exam: Normal Affect, Normal Mood - Skin Skin Exam: Dry, Intact, Normal Color, Warm Discharge Plan - Discharge Medications Prescriptions: Ciprofloxacin HCl [Cipro] 500 mg PO BID #14 tablet Ondansetron ODT [Zofran ODT] 4 mg PO Q8H PRN #20 odt PRN Reason: Nausea/Vomiting - Follow Up Plan Condition: FAIR Disposition: HOME/ ROUTINE Instructions: Small Bowel Obstruction (DC), Diabetes and Diet Additional Instructions: final dx-partial sbo appears to have resolved doing well. no f/c, n/v/d. ivanna po. meds e-rx Referrals: Jenny Gomez MD [Family Provider] - Rg Duran MD [Staff Provider] - Tanmay Wilkes MD, PhD [Staff Provider] -
--- NOTE | 2017-09-04 08:15 | CP.PCM.PN ---
Subjective - Date & Time of Evaluation Date of Evaluation: 09/04/17 Time of Evaluation: 07:35 - Subjective Subjective: Patient seen and examined. No acute events over night. Patient tolerated regular diet. Denies abdominal pain, nausea/vomiting, fever/chills. Reports having BM yesterday night. Objective - Vital Signs/Intake and Output Vital Signs (last 24 hours): Temp Pulse Resp BP Pulse Ox 97.9 F 79 19 121/70 96 09/04/17 00:00 09/04/17 00:00 09/04/17 00:00 09/04/17 00:00 09/04/17 00:00 - Medications Medications: Current Medications Lactated Ringer's (Lactated Ringer's) 1,000 mls @ 100 mls/hr IV .Q10H [facility] Last Admin: 09/03/17 14:43 Dose: 100 mls/hr Ciprofloxacin (Cipro 400mg/200ml Dsw) 400 mg in 200 mls @ 200 mls/hr IVPB Q12 NORIS PRN Reason: Protocol Last Admin: 09/03/17 21:30 Dose: 200 mls/hr Ketorolac Tromethamine (Toradol) 30 mg IVP Q6 PRN PRN Reason: Pain, moderate (4-7) Losartan Potassium (Cozaar) 25 mg PO DAILY [facility] Last Admin: 09/03/17 11:18 Dose: 25 mg Morphine Sulfate (Morphine) 2 mg IVP Q4 PRN PRN Reason: Pain, severe (8-10) Ondansetron HCl (Zofran Odt) 4 mg PO Q8H PRN PRN Reason: Nausea/Vomiting - Labs Labs: 09/03/17 08:30 09/03/17 08:30 - Constitutional Appears: No Acute Distress - Head Exam Head Exam: NORMOCEPHALIC - Eye Exam Eye Exam: EOMI, Normal appearance - ENT Exam ENT Exam: Mucous Membranes Moist - Respiratory Exam Respiratory Exam: NORMAL BREATHING PATTERN - Cardiovascular Exam Cardiovascular Exam: +S1, +S2 - GI/Abdominal Exam GI & Abdominal Exam: Soft. absent: Distended, Firm, Guarding, Rigid, Tenderness , Rebound - Neurological Exam Neurological Exam: Alert, Awake, Oriented x3 - Psychiatric Exam Psychiatric exam: Normal Mood - Skin Skin Exam: Dry, Intact, Warm Assessment and Plan - Assessment and Plan (Free Text) Assessment: 67F w pSBO, constipation - resolved Plan: No further surgical intervention necessary Regular diet D/C per primary team Further recs per Dr. Jimi Godfrey PGY2
[2017-09-04 08:19] LABS: BASO % 0.3 % (0.0-2.0); EOS # 0.2 K/uL (0.0-0.7); EOS % 2.3 % (0.0-4.0); HEMOGLOBIN 13.2 g/dL (12.0-16.0); LYMPH # 2.8 K/uL (1.0-4.3); LYMPH % 40.8 % (20.0-40.0); MEAN CELL VOLUME 91.4 fl (81.0-99.0); MEAN CORPUSCULAR HEMOGLOBIN 30.8 pg (27.0-31.0); MEAN CORPUSCULAR HGB CONC 33.7 g/dL (33.0-37.0); MEAN PLATELET VOLUME 8.6 fl (7.2-11.7); MONO # 0.6 K/uL (0.0-0.8); NEUT # 3.3 K/uL (1.8-7.0); NEUT % 47.6 % (50.0-75.0); NRBC % 0.1 % (0.0-0.0); RBC 4.29 Mil/uL (3.80-5.20); RED CELL DISTRIBUTION WIDTH 13.3 % (11.5-14.5); WHITE BLOOD COUNT 6.9 K/uL (4.8-10.8)
[2017-09-04 08:39] VITALS: BP 126/76; PULSE 76; RESP 18; TEMP 98.1; O2SAT 97
[2017-09-04 09:16] LABS: ALB/GLOB RATIO 1.2 (1.0-2.1); ALBUMIN 4.1 g/dL (3.5-5.0); ALT/SGPT 33 U/L (9-52); AST/SGOT 28 U/L (14-36); BLOOD UREA NITROGEN 8 mg/dl (7-17); CALCIUM 9.5 mg/dL (8.4-10.2); GFR AFRICAN-AMERICAN > 60; GFR NON-AFRICAN AMERICAN > 60
[2017-09-04] MEDS: Ciprofloxacin 400mg/200ml D5W 400 MG/200 ML BAG IVPB SCH (10:58)
== END 2017-09-04 11:33 | disposition home or self-care (01) | DRG 389 ==
LOC: H.ER 18:04 → H.ERHOLD 23:57 → H.MEDSURG1 09-03 01:42
PROVIDERS: ADMIT Family Medicine; ATTEND Family Medicine
DX: K56.600 Partial intestinal obstruction, unspecified as to cause (principal); N39.0 Urinary tract infection, site not specified; E11.65 Type 2 diabetes mellitus with hyperglycemia; E78.5 Hyperlipidemia, unspecified; I10 Essential (primary) hypertension; K21.9 Gastro-esophageal reflux disease without esophagitis; K57.90 Diverticulosis of intestine, part unspecified, without perforation or abscess without bleeding; K59.04 Chronic idiopathic constipation; Z98.51 Tubal ligation status; K29.70 Gastritis, unspecified, without bleeding; Z79.84 Long term (current) use of oral hypoglycemic drugs

== ENCOUNTER 2017-09-28 08:15 | Day surgery (SDC) | payer OTHER ==
[2017-09-28] MEDS ORDERED: Lactated Ringer's 500 ML IV ONE (08:29)
[2017-09-28] MEDS ORDERED: Propofol 10 mg/ml Inj (20 ML) ONE (09:37)
[2017-09-28 10:19] VITALS: RESP 14; TEMP 97
[2017-09-28 10:28] VITALS: PULSE 69; O2SAT 100
[2017-09-28 10:46] VITALS: BP 120/89
== END 2017-09-28 10:47 | disposition home or self-care (01) ==
LOC: H.ENDO 08:15
PROVIDERS: ATTEND Internal Medicine Gastroenterology
DX: Z12.11 Encounter for screening for malignant neoplasm of colon (principal); E78.5 Hyperlipidemia, unspecified; E11.9 Type 2 diabetes mellitus without complications; I10 Essential (primary) hypertension; K64.1 Second degree hemorrhoids; D12.0 Benign neoplasm of cecum; D12.3 Benign neoplasm of transverse colon; K57.30 Diverticulosis of large intestine without perforation or abscess without bleeding; K63.89 Other specified diseases of intestine
CPT/HCPCS: 45380; 45385; 82948; 88305; J2001; J2704; J7120

== ENCOUNTER 2018-03-15 14:28 | Emergency (ER) | payer OTHER ==
[2018-03-15 14:28] VITALS: BMI 27.1
[2018-03-15 14:35] VITALS: BP 182/80; PULSE 77; RESP 16; TEMP 97; O2SAT 99
--- NOTE | 2018-03-15 15:54 | ED PDOC ---
Lower Extremity Pain/Injury Time Seen by Provider: 03/15/18 15:03 Chief Complaint (Nursing): Lower Extremity Problem/Injury History Per: Patient History/Exam Limitations: no limitations Onset/Duration Of Symptoms: Sudden Onset Current Symptoms Are (Timing): Still Present Pain Scale Rating Of: 5 Additional Complaint(s): 67 yo F with no PMHx presents with pain and swelling to the right foot after a mechanical fall. PT states on Wednesday (4 days ago) she slipped on ice/snow and has had pain since. She is unsure how her foot moved when she fell but denies other injury or pain. Pt states she has been unable to take more than one or two steps without pain but is amble to walk without assistance. PMD: Jenny Gomez - Ankle/Foot Description Of Injury: Fell Currently Unable To: Bear Weight Alleviating Factor(s): OTC Pain Medication - Risk Factors DVT Risk Factors: Pos: Decreased Mobility Past Medical History Vital Signs: Last Vital Signs Temp 97 F L 03/15/18 14:31 Pulse 77 03/15/18 14:31 Resp 16 03/15/18 14:31 BP 182/80 H 03/15/18 14:31 Pulse Ox 99 03/15/18 14:31 - Medical History PMH: Diabetes, GERD, HTN, Hypercholesterolemia, Hyperlipidemia Denies: Chronic Kidney Disease - Family History Family History: States: Unknown Family Hx - Home Medications Home Medications: Ambulatory Orders Medication Instructions Recorded Glipizide [Glipizide ER] 10 mg PO DAILY 09/03/17 Insulin Glargine, Recombina 35 units SC HS 09/03/17 [Lantus] Losartan Potassium 25 mg PO DAILY 09/03/17 SITagliptin [Januvia] 100 mg PO DAILY 09/03/17 - Allergies Allergies/Adverse Reactions: Allergies Allergy/AdvReac Type Severity Reaction Status Date / Time No Known Allergies Allergy Verified 03/15/18 14:31 Review of Systems Constitutional: Negative for: Fever, Chills Cardiovascular: Negative for: Chest Pain Respiratory: Negative for: Cough, Shortness of Breath Gastrointestinal: Negative for: Nausea, Vomiting Skin: Positive for: Bruising (right foot). Negative for: Rash Neurological: Negative for: Weakness, Numbness, Incoordination Physical Exam - Physical Exam Appears: Positive for: Well, Non-toxic, No Acute Distress Head Exam: Positive for: ATRAUMATIC, NORMOCEPHALIC Skin: Positive for: Normal Color, Warm, Dry Eye Exam: Positive for: Normal appearance, EOMI, PERRL Cardiovascular/Chest: Positive for: Regular Rate, Rhythm Respiratory: Positive for: Normal Breath Sounds. Negative for: Crackles, Wheezing Pulses-Dorsalis Pedis (L): 2+ Pulses-Dorsalis Pedis (R): 2+ Gastrointestinal/Abdominal: Positive for: Normal Exam, Soft, Tenderness Back: Positive for: Normal Inspection. Negative for: L CVA Tenderness, R CVA Tenderness Extremity: Positive for: Tenderness (TTP over anterior ankle and anterior lateral maleolus), Swelling, Other (swelling diffusely to right foot and ankle, worse on lateral ankle. Bruising to medial plantar foot.) - ECG O2 Sat by Pulse Oximetry: 99 Medical Decision Making Medical Decision Making: Swelling and pain after mechanical fall. Workup for fracture vs sprain -xray -tylenol for pain reassess pt [id number]: Xray shows no fracture or dislocation. Foot/ankle wrapped in bao bandage for comfort/support and pt given crutches instructions. Pt to follow up with PMD in one week. Ice and elevation for swelling. Disposition - Clinical Impression Clinical Impression: Ankle sprain - Disposition Disposition: Routine/Home Disposition Time: 18:05 Condition: IMPROVED Additional Instructions: Avoid activities that worsen your pain. Follow up with primary medical doctor in one week. Ice and elevated the foot/ankle to reduce swelling. Take Tylenol or Motrin for pain. Use crutches when walking until pain is resolved. Instructions: Ankle Sprain (DC), Foot Sprain (DC) Forms: [employer] (Tristanian), [employer] (English) Print Language: YAKUT
--- NOTE | 2018-03-15 16:05 | RAD ---
Date of service: 03/15/2018 PROCEDURE: Right Foot Radiographs. HISTORY: pain and swelling after fall COMPARISON: None. FINDINGS: BONES: Bone alignment and mineralization are normal. There is no acute displaced fracture or bone destruction. JOINTS: Normal. SOFT TISSUES: There is mild medial soft tissue swelling. OTHER FINDINGS: None. IMPRESSION: No acute displaced fracture or dislocation.
== END 2018-03-15 18:14 | disposition home or self-care (01) ==
LOC: H.ER 14:28
DX: S93.401A Sprain of unspecified ligament of right ankle, initial encounter (principal); W00.0XXA Fall on same level due to ice and snow, initial encounter; Y92.89 Other specified places as the place of occurrence of the external cause